=== PATIENT | female | born 1960 | race Two or more races ===

== ENCOUNTER → 2024-02-27 | Outpatient (CLI) | payer OTHER ==
[2024-02-27 13:47] LABS: Eosinophils # (auto) 0.3 10 ^3/uL (0-0.8); Lymphocytes # (auto) 1.3 10 ^3/uL (0.4-5.4); Lymphocytes % (auto) 12.5 % (10.0-50.0); Mean Corpuscular Hgb Conc. 32.1 g/dL (32.0-36.0); Monocytes # (auto) 0.4 10 ^3/uL (0-1.3)
[2024-02-27 13:49] LABS: Basophils # (auto) 0.1 10 ^3/uL (0-0.2); Basophils % (auto) 0.7 % (0.0-2.0); Eosinophils % (auto) 3.5 % (0.0-7.0); Hematocrit 46.3 % (36.0-46.0); Hemoglobin 14.9 g/dL (12.2-16.2); Mean Corpuscular Volume 81.1 fL (80.0-100.0); Monocytes % (auto) 3.8 % (0.0-12.0); Neutrophils % (auto) 79.5 % (37.0-80.0); Nucleated Red Blood Cells % 0.1 %; Red Blood Cells 5.72 10^6/uL (4.0-5.20); Red Cell Distribution Width 20.9 % (11.8-14.3)
[2024-02-27 14:06] LABS: Alanine Aminotransferase 53 U/L (7-40); Albumin 4.8 g/dL (3.2-4.8); Alkaline Phosphatase 395 U/L (46-116); Anion Gap 6 (5-15); Aspartate Aminotransferase 36 U/L (13-40); BUN/Creatinine Ratio 6.3 (10.0-20.0); Blood Urea Nitrogen 8 mg/dL (9-23); Calcium 10.3 mg/dL (8.5-10.1); Carbon Dioxide 28 mmol/L (20-30); Chloride 105 mmol/L (98-107); Glucose 129 mg/dL (74-106); LDL Cholesterol 156 mg/dL (< 100); Potassium 4.3 mmol/L (3.5-5.1); Sodium 139 mmol/L (136-145); Triglycerides 150 mg/dL (< 150)
[2024-02-27 14:07] LABS: Bilirubin, Total 0.5 mg/dL (0.2-1.0); Cholesterol 252 mg/dL (< 200); HDL Cholesterol 71 mg/dL (40-59); Total Protein 7.3 g/dL (5.7-8.2)
== END | disposition home or self-care (01) ==
LOC: LAB 13:20
PROVIDERS: ATTEND Specialist
DX: I10 Essential (primary) hypertension (principal); E66.01 Morbid (severe) obesity due to excess calories; E78.5 Hyperlipidemia, unspecified; R60.0 Localized edema; Z13.1 Encounter for screening for diabetes mellitus; Z13.220 Encounter for screening for lipoid disorders
CPT/HCPCS: 36415; 80053; 80061; 83036; 85025

== ENCOUNTER → 2024-04-01 | Outpatient (CLI) | payer OTHER ==
[2024-04-01 12:42] LABS: Basophils # (auto) 0.1 10 ^3/uL (0-0.2); Eosinophils # (auto) 0.3 10 ^3/uL (0-0.8); Monocytes # (auto) 0.7 10 ^3/uL (0-1.3); Monocytes % (auto) 5.1 % (0.0-12.0)
[2024-04-01 12:44] LABS: Basophils % (auto) 0.4 % (0.0-2.0); Eosinophils % (auto) 2.3 % (0.0-7.0); Hematocrit 45.1 % (36.0-46.0); Hemoglobin 14.5 g/dL (12.2-16.2); Lymphocytes # (auto) 1.3 10 ^3/uL (0.4-5.4); Mean Corpuscular Hemoglobin 26.1 pg (28.0-32.0); Mean Corpuscular Hgb Conc. 32.1 g/dL (32.0-36.0); Mean Corpuscular Volume 81.4 fL (80.0-100.0); Neutrophils # (auto) 10.7 10 ^3/uL (1.6-8.6); Neutrophils % (auto) 82.2 % (37.0-80.0); Red Blood Cells 5.55 10^6/uL (4.0-5.20); Red Cell Distribution Width 20.5 % (11.8-14.3)
[2024-04-01 13:32] LABS: Alanine Aminotransferase 69 U/L (7-40); Albumin 4.6 g/dL (3.2-4.8); Alkaline Phosphatase 407 U/L (46-116); Anion Gap 5 (5-15); Aspartate Aminotransferase 60 U/L (13-40); BUN/Creatinine Ratio 8.7 (10.0-20.0); Blood Urea Nitrogen 11 mg/dL (9-23); Calcium 9.8 mg/dL (8.7-10.4); Carbon Dioxide 29 mmol/L (20-30); Chloride 104 mmol/L (98-107); Glucose 92 mg/dL (74-106); Potassium 4.2 mmol/L (3.5-5.1); Sodium 138 mmol/L (136-145)
[2024-04-01 13:33] LABS: Bilirubin, Total 0.6 mg/dL (0.2-1.0)
== END | disposition home or self-care (01) ==
LOC: LAB 12:18
PROVIDERS: ATTEND Internal Medicine
DX: D50.9 Iron deficiency anemia, unspecified (principal); D75.0 Familial erythrocytosis
CPT/HCPCS: 36415; 80053; 83615; 85025

== ENCOUNTER → 2024-07-02 | Outpatient (CLI) | payer OTHER ==
[2024-07-02 14:53] LABS: Basophils # (auto) 0.1 10 ^3/uL (0-0.2); Basophils % (auto) 0.7 % (0.0-2.0); Eosinophils # (auto) 0.3 10 ^3/uL (0-0.8); Eosinophils % (auto) 3.2 % (0.0-7.0); Hematocrit 49.8 % (36.0-46.0); Hemoglobin 16.2 g/dL (12.2-16.2); Lymphocytes # (auto) 1.6 10 ^3/uL (0.4-5.4); Lymphocytes % (auto) 19.6 % (10.0-50.0); Mean Corpuscular Hemoglobin 27.9 pg (28.0-32.0); Mean Corpuscular Hgb Conc. 32.6 g/dL (32.0-36.0); Mean Corpuscular Volume 85.7 fL (80.0-100.0); Monocytes # (auto) 0.5 10 ^3/uL (0-1.3); Monocytes % (auto) 6.2 % (0.0-12.0); Neutrophils # (auto) 5.7 10 ^3/uL (1.6-8.6); Neutrophils % (auto) 70.3 % (37.0-80.0); Nucleated Red Blood Cells % 0.1 %; Platelet Count (auto) 392 10^3/uL (140-450); Red Blood Cells 5.81 10^6/uL (4.0-5.20); White Blood Cell 8.2 10^3/uL (4.4-10.8)
[2024-07-02 15:17] LABS: Alanine Aminotransferase 38 U/L (7-40); Albumin 4.6 g/dL (3.2-4.8); Alkaline Phosphatase 313 U/L (46-116); Anion Gap 6 (5-15); Aspartate Aminotransferase 47 U/L (13-40); BUN/Creatinine Ratio 9.6 (10.0-20.0); Bilirubin, Total 0.4 mg/dL (0.2-1.0); Blood Urea Nitrogen 13 mg/dL (9-23); Calcium 9.8 mg/dL (8.7-10.4); Carbon Dioxide 27 mmol/L (20-31); Chloride 106 mmol/L (98-107); Glucose 91 mg/dL (74-106); Potassium 4.4 mmol/L (3.5-5.1); Sodium 139 mmol/L (136-145); Total Protein 7.4 g/dL (5.7-8.2)
[2024-07-02 15:23] LABS: % Iron Saturation 14.5 % (15-50)
== END | disposition home or self-care (01) ==
LOC: LAB 14:40
PROVIDERS: ATTEND Internal Medicine
DX: D50.9 Iron deficiency anemia, unspecified (principal); D75.0 Familial erythrocytosis
CPT/HCPCS: 36415; 80053; 82728; 83540; 83550; 83615; 85025

== ENCOUNTER → 2024-08-29 | Outpatient (CLI) | payer OTHER ==
[2024-08-29 14:03] LABS: Basophils # (auto) 0.1 10 ^3/uL (0-0.2); Basophils % (auto) 1.9 % (0.0-2.0); Eosinophils # (auto) 0.2 10 ^3/uL (0-0.8); Eosinophils % (auto) 3.5 % (0.0-7.0); Hematocrit 50.1 % (36.0-46.0); Hemoglobin 16.3 g/dL (12.2-16.2); Lymphocytes # (auto) 1.2 10 ^3/uL (0.4-5.4); Lymphocytes % (auto) 23.5 % (10.0-50.0); Mean Corpuscular Hemoglobin 28.2 pg (28.0-32.0); Mean Corpuscular Hgb Conc. 32.6 g/dL (32.0-36.0); Mean Corpuscular Volume 86.3 fL (80.0-100.0); Monocytes # (auto) 0.3 10 ^3/uL (0-1.3); Monocytes % (auto) 5.8 % (0.0-12.0); Neutrophils # (auto) 3.4 10 ^3/uL (1.6-8.6); Neutrophils % (auto) 65.3 % (37.0-80.0); Nucleated Red Blood Cells % 0.3 %; Platelet Count (auto) 353 10^3/uL (140-450); Red Cell Distribution Width 20.9 % (11.8-14.3); White Blood Cell 5.3 10^3/uL (4.4-10.8)
[2024-08-29 14:12] LABS: INR 0.99 (0.9-1.15); Partial Thromboplastin Time 29.6 SEC (24.5-34.5); Prothrombin Time 10.5 sec (9.3-11.8)
[2024-08-29 14:24] LABS: Alanine Aminotransferase 21 U/L (7-40); Albumin 4.5 g/dL (3.2-4.8); Anion Gap 6 (5-15); Aspartate Aminotransferase 30 U/L (13-40); BUN/Creatinine Ratio 9.8 (10.0-20.0); Blood Urea Nitrogen 12 mg/dL (9-23); Calcium 10.2 mg/dL (8.7-10.4); Carbon Dioxide 29 mmol/L (20-31); Chloride 105 mmol/L (98-107); Potassium 4.6 mmol/L (3.5-5.1); Sodium 140 mmol/L (136-145)
[2024-08-29 14:25] LABS: Bilirubin, Total 0.3 mg/dL (0.2-1.0); Total Protein 7.3 g/dL (5.7-8.2)
[2024-08-29 14:30] LABS: Alkaline Phosphatase 332 U/L (46-116); Glucose 132 mg/dL (74-106)
== END | disposition home or self-care (01) ==
LOC: LAB 13:41
PROVIDERS: ATTEND Internal Medicine
DX: D75.0 Familial erythrocytosis (principal); D50.9 Iron deficiency anemia, unspecified
CPT/HCPCS: 36415; 80053; 82306; 82728; 83540; 83550; 83615; 85025; 85610; 85730

== ENCOUNTER → 2024-10-22 | Outpatient (CLI) | payer OTHER ==
[2024-10-22 13:59] LABS: Basophils # (auto) 0.1 10 ^3/uL (0-0.2); Eosinophils # (auto) 0.3 10 ^3/uL (0-0.8); Monocytes # (auto) 0.4 10 ^3/uL (0-1.3); Neutrophils # (auto) 5.7 10 ^3/uL (1.6-8.6); Nucleated Red Blood Cells % 0.1 %
[2024-10-22 14:01] LABS: Basophils % (auto) 0.8 % (0.0-2.0); Eosinophils % (auto) 3.2 % (0.0-7.0); Hematocrit 50.4 % (36.0-46.0); Hemoglobin 16.5 g/dL (12.2-16.2); Lymphocytes # (auto) 1.5 10 ^3/uL (0.4-5.4); Lymphocytes % (auto) 18.9 % (10.0-50.0); Mean Corpuscular Hemoglobin 30.4 pg (28.0-32.0); Mean Corpuscular Hgb Conc. 32.7 g/dL (32.0-36.0); Monocytes % (auto) 5.4 % (0.0-12.0); Neutrophils % (auto) 71.7 % (37.0-80.0); Platelet Count (auto) 499 10^3/uL (140-450); Red Blood Cells 5.42 10^6/uL (4.0-5.20); Red Cell Distribution Width 21.1 % (11.8-14.3)
[2024-10-22 14:17] LABS: INR 0.98 (0.9-1.15); Partial Thromboplastin Time 30.6 SEC (24.5-34.5); Prothrombin Time 10.4 sec (9.3-11.8)
[2024-10-22 14:37] LABS: % Iron Saturation 10.5 % (15-50); Anion Gap 9 (5-15); BUN/Creatinine Ratio 12.4 (10.0-20.0); Blood Urea Nitrogen 14 mg/dL (9-23); Carbon Dioxide 26 mmol/L (20-31); Chloride 104 mmol/L (98-107); Glucose 80 mg/dL (74-106); Potassium 4.4 mmol/L (3.5-5.1); Sodium 139 mmol/L (136-145); Total Protein 7.9 g/dL (5.7-8.2)
[2024-10-22 14:38] LABS: Aspartate Aminotransferase 33 U/L (13-40); Bilirubin, Total 0.4 mg/dL (0.2-1.0)
[2024-10-22 14:42] LABS: Alanine Aminotransferase 47 U/L (7-40); Albumin 5.1 g/dL (3.2-4.8); Alkaline Phosphatase 339 U/L (46-116); Calcium 10.8 mg/dL (8.7-10.4)
== END | disposition home or self-care (01) ==
LOC: LAB 13:23
PROVIDERS: ATTEND Nurse Practitioner
DX: D75.0 Familial erythrocytosis (principal); D50.9 Iron deficiency anemia, unspecified
CPT/HCPCS: 36415; 80053; 82306; 82728; 83540; 83550; 83615; 85025; 85610; 85730

== ENCOUNTER → 2024-12-18 | Outpatient (CLI) | payer OTHER ==
[~2024-12-18] VITALS: Ht 172.7 cm; Wt 90.7 kg
[2024-12-18] MEDS: REGADENOSON 0.4 MG/5 ML SYRG IV ONE ×2 (11:10→11:13)
--- NOTE | 2024-12-18 13:19 | DVHSR ---
APPROVED REPORT Exam: Nuclear Stress Test BMI: 0 Stress Test Details HR Max Heart Rate (APMHR): 156.820844 bpm Target HR (85% APMHR): 132.439812 bpm BP ECG Stress ECG Conclusion LVEF 66% NORMAL PERFUSION SCAN NO SEVERE ISCHEMIA NOTED GI ARTIFACT INFERIOR WALL NOTED NM EXAM: Myocardial Perfusion REST/STRESS Imaging Protocol: Rest Tc-99m/Stress Tc-99m 1 day Resting Data Rest SPECT myocardial perfusion imaging was performed in supine position 60 minutes following the int ravenous injection of 12.0 mCi of Tc-99m Sestamibi. Time of rest injection: 10:18 Date: 12/18/2024 Time of rest imagin:18 Date: 12/18/2024 Administration Route: IV Administration Site: Left AC Pharmacologic Stress Pharmacologic stress test was performed by injecting Regadenoson 0.4 mg IV push followed by the intra venous injection of 31.7 mCi of Tc-99m Sestamibi. Time of stress injection: 11:10 Date: 12/18/2024 Time of stress imagin:10 Date: 12/18/2024 Administration Route: IV Administration Site: Left AC Gated Stress SPECT was performed 60 minutes after stress injection. The images were gated to evaluate regional wall motion and calculate left ventricular ejection fracti on. Stress only was performed in the position. Nuclear Conclusion Nuclear Findings: negative for ischemia LVEF 66% NORMAL PERFUSION SCAN NO SEVERE ISCHEMIA NOTED GI ARTIFACT INFERIOR WALL NOTED
== END | disposition home or self-care (01) ==
LOC: XYW 10:04
PROVIDERS: ATTEND Internal Medicine
DX: R06.02 Shortness of breath (principal); I10 Essential (primary) hypertension; I35.8 Other nonrheumatic aortic valve disorders; D45 Polycythemia vera; R06.09 Other forms of dyspnea; R60.0 Localized edema; E66.01 Morbid (severe) obesity due to excess calories
CPT/HCPCS: 78452; 93017; A9500; J2785

== ENCOUNTER → 2025-01-01 | Outpatient (CLI) | payer OTHER ==
[2025-01-01 15:07] LABS: Basophils # (auto) 0.1 10 ^3/uL (0-0.2); Basophils % (auto) 0.6 % (0.0-2.0); Eosinophils # (auto) 0.3 10 ^3/uL (0-0.8); Eosinophils % (auto) 4.1 % (0.0-7.0); Hematocrit 46.8 % (36.0-46.0); Hemoglobin 15.7 g/dL (12.2-16.2); Lymphocytes # (auto) 1.6 10 ^3/uL (0.4-5.4); Lymphocytes % (auto) 19.8 % (10.0-50.0); Mean Corpuscular Hgb Conc. 33.5 g/dL (32.0-36.0); Mean Corpuscular Volume 95.4 fL (80.0-100.0); Monocytes # (auto) 0.5 10 ^3/uL (0-1.3); Monocytes % (auto) 6.4 % (0.0-12.0); Neutrophils # (auto) 5.6 10 ^3/uL (1.6-8.6); Neutrophils % (auto) 69.1 % (37.0-80.0); Platelet Count (auto) 421 10^3/uL (140-450); Red Blood Cells 4.91 10^6/uL (4.0-5.20); Red Cell Distribution Width 19.1 % (11.8-14.3); White Blood Cell 8.1 10^3/uL (4.4-10.8)
[2025-01-01 15:28] LABS: Albumin 4.8 g/dL (3.2-4.8); Anion Gap 9 (5-15); BUN/Creatinine Ratio 10.1 (10.0-20.0); Blood Urea Nitrogen 13 mg/dL (9-23); Carbon Dioxide 28 mmol/L (20-31); Chloride 103 mmol/L (98-107); Glucose 78 mg/dL (74-106); Potassium 4.2 mmol/L (3.5-5.1); Sodium 140 mmol/L (136-145); Total Protein 7.3 g/dL (5.7-8.2); Triglycerides 103 mg/dL (< 150)
[2025-01-01 15:29] LABS: Alanine Aminotransferase 114 U/L (7-40); Alkaline Phosphatase 410 U/L (46-116); Aspartate Aminotransferase 148 U/L (13-40); Bilirubin, Total 0.7 mg/dL (0.2-1.0); Cholesterol 251 mg/dL (< 200)
[2025-01-01 15:30] LABS: HDL Cholesterol 79 mg/dL (40-59); LDL Cholesterol 161 mg/dL (< 100)
== END | disposition home or self-care (01) ==
LOC: LAB 14:50
PROVIDERS: ATTEND Specialist
DX: D45 Polycythemia vera (principal); Z12.11 Encounter for screening for malignant neoplasm of colon; Z12.4 Encounter for screening for malignant neoplasm of cervix; Z12.39 Encounter for other screening for malignant neoplasm of breast
CPT/HCPCS: 36415; 80053; 80061; 85025

== ENCOUNTER → 2025-01-07 | Outpatient (CLI) | payer OTHER ==
[2025-01-07 16:24] LABS: Basophils # (auto) 0 10 ^3/uL (0-0.2); Basophils % (auto) 0.5 % (0.0-2.0); Eosinophils # (auto) 0.3 10 ^3/uL (0-0.8); Eosinophils % (auto) 4.3 % (0.0-7.0); Hematocrit 44.8 % (36.0-46.0); Hemoglobin 14.7 g/dL (12.2-16.2); Lymphocytes # (auto) 0.9 10 ^3/uL (0.4-5.4); Lymphocytes % (auto) 14.3 % (10.0-50.0); Mean Corpuscular Hemoglobin 31.8 pg (28.0-32.0); Mean Corpuscular Hgb Conc. 32.9 g/dL (32.0-36.0); Mean Corpuscular Volume 96.7 fL (80.0-100.0); Monocytes # (auto) 0.5 10 ^3/uL (0-1.3); Monocytes % (auto) 7.4 % (0.0-12.0); Neutrophils # (auto) 4.8 10 ^3/uL (1.6-8.6); Neutrophils % (auto) 73.5 % (37.0-80.0); Platelet Count (auto) 364 10^3/uL (140-450); Red Blood Cells 4.63 10^6/uL (4.0-5.20); Red Cell Distribution Width 19.8 % (11.8-14.3); White Blood Cell 6.5 10^3/uL (4.4-10.8)
[2025-01-07 16:53] LABS: Alanine Aminotransferase 40 U/L (7-40); Albumin 4.4 g/dL (3.2-4.8); Anion Gap 9 (5-15); Aspartate Aminotransferase 36 U/L (13-40); BUN/Creatinine Ratio 6.2 (10.0-20.0); Bilirubin, Direct 0.2 mg/dL (<0.3); Calcium 9.9 mg/dL (8.7-10.4); Carbon Dioxide 27 mmol/L (20-31); Chloride 105 mmol/L (98-107); Glucose 91 mg/dL (74-106); Potassium 4.5 mmol/L (3.5-5.1); Sodium 141 mmol/L (136-145); Total Protein 6.8 g/dL (5.7-8.2)
[2025-01-07 16:54] LABS: Bilirubin, Total 0.4 mg/dL (0.2-1.0)
[2025-01-07 16:56] LABS: Alkaline Phosphatase 357 U/L (46-116); Blood Urea Nitrogen 8 mg/dL (9-23)
== END | disposition home or self-care (01) ==
LOC: LAB 15:15
PROVIDERS: ATTEND Specialist
DX: Z59.2 Discord with neighbors, lodgers and landlord (principal)
CPT/HCPCS: 36415; 80053; 80076; 85025

== ENCOUNTER → 2025-01-09 | Outpatient (CLI) | payer OTHER ==
[2025-01-09 15:44] LABS: Basophils # (auto) 0.1 10 ^3/uL (0-0.2); Basophils % (auto) 0.9 % (0.0-2.0); Eosinophils # (auto) 0.3 10 ^3/uL (0-0.8); Eosinophils % (auto) 4.1 % (0.0-7.0); Lymphocytes # (auto) 1.1 10 ^3/uL (0.4-5.4); Lymphocytes % (auto) 14.8 % (10.0-50.0); Mean Corpuscular Hgb Conc. 33.3 g/dL (32.0-36.0); Mean Corpuscular Volume 96.2 fL (80.0-100.0); Monocytes # (auto) 0.5 10 ^3/uL (0-1.3); Neutrophils # (auto) 5.6 10 ^3/uL (1.6-8.6); Neutrophils % (auto) 73.2 % (37.0-80.0); Nucleated Red Blood Cells % 0.1 %; Platelet Count (auto) 338 10^3/uL (140-450); Red Blood Cells 4.68 10^6/uL (4.0-5.20); Red Cell Distribution Width 19.6 % (11.8-14.3); White Blood Cell 7.6 10^3/uL (4.4-10.8)
[2025-01-09 16:04] LABS: % Iron Saturation 11.1 % (15-50)
[2025-01-09 16:05] LABS: Alanine Aminotransferase 27 U/L (7-40); Albumin 4.6 g/dL (3.2-4.8); Anion Gap 9 (5-15); Aspartate Aminotransferase 23 U/L (13-40); BUN/Creatinine Ratio 5.8 (10.0-20.0); Bilirubin, Total 0.4 mg/dL (0.2-1.0); Calcium 9.4 mg/dL (8.7-10.4); Carbon Dioxide 27 mmol/L (20-31); Chloride 104 mmol/L (98-107); Glucose 85 mg/dL (74-106); Potassium 4.2 mmol/L (3.5-5.1); Sodium 140 mmol/L (136-145); Total Protein 7.1 g/dL (5.7-8.2)
[2025-01-09 16:08] LABS: Alkaline Phosphatase 313 U/L (46-116); Blood Urea Nitrogen 7 mg/dL (9-23)
== END | disposition home or self-care (01) ==
LOC: LAB 15:10
PROVIDERS: ATTEND Physician Assistant
DX: D75.0 Familial erythrocytosis (principal); D50.9 Iron deficiency anemia, unspecified
CPT/HCPCS: 36415; 80053; 82306; 82728; 83540; 83550; 85025

== ENCOUNTER 2025-03-23 15:59 | Outpatient (CLI) | payer OTHER ==
[2025-03-23 16:15] LABS: Hematocrit 48.2 % (36.0-46.0); Hemoglobin 16.1 g/dL (12.2-16.2); Mean Corpuscular Hemoglobin 32.3 pg (28.0-32.0); Mean Corpuscular Volume 96.4 fL (80.0-100.0); Nucleated Red Blood Cells % 0.1 %
[2025-03-23 16:38] LABS: Alanine Aminotransferase 27 U/L (7-40); Albumin 4.8 g/dL (3.2-4.8); Anion Gap 9 (5-15); BUN/Creatinine Ratio 11.1 (10.0-20.0); Bilirubin, Total 0.5 mg/dL (0.2-1.0); Blood Urea Nitrogen 13 mg/dL (9-23); Calcium 9.5 mg/dL (8.7-10.4); Carbon Dioxide 26 mmol/L (20-31); Chloride 104 mmol/L (98-107); Glucose 79 mg/dL (74-106); Potassium 4.4 mmol/L (3.5-5.1); Sodium 139 mmol/L (136-145); Total Protein 7.2 g/dL (5.7-8.2)
[2025-03-23 16:45] LABS: Alkaline Phosphatase 309 U/L (46-116)
[2025-03-23 17:07] LABS: Iron 42.0 ug/dL (50-170); Total Iron Binding Capacity 451.0 ug/dL (250-425)
== END 2025-03-23 17:00 | disposition home or self-care (01) ==
LOC: LAB 15:59
PROVIDERS: ATTEND Physician Assistant
DX: D50.9 Iron deficiency anemia, unspecified (principal); D75.0 Familial erythrocytosis
CPT/HCPCS: 36415; 80053; 82728; 83540; 83550; 85025

== ENCOUNTER 2025-05-13 14:38 | Outpatient (CLI) | payer OTHER ==
[2025-05-14 08:07] LABS: Free Thyroxine Index 1.8 (1.2-4.9)
== END 2025-05-13 17:00 | disposition home or self-care (01) ==
LOC: LAB 14:38
PROVIDERS: ATTEND Specialist
DX: E66.01 Morbid (severe) obesity due to excess calories (principal)
CPT/HCPCS: 36415; 84443